=== PATIENT | male | born 1960 | race Caucasian/White ===

== ENCOUNTER 2018-11-08 09:35 | Inpatient (IN) ==
--- NOTE | 2018-10-26 09:36 | PAT Medication Instructions ---
Medication Instructions Date of Service October 26, 2018 Home Medications aspirin [Aspir-81] 81 mg PO QAM budesonide-formoterol [Symbicort] 2 puff INHALATION BID carvedilol 12.5 mg PO BID folic acid 1 mg PO QAM furosemide [Lasix] 20 mg PO Q2D mirtazapine 15 mg PO QAM pantoprazole 40 mg PO QAM sodium chloride 1,000 mg PO BID umeclidinium [Incruse Ellipta] 1 inh INHALATION QAM warfarin 5 mg PO QPM ASK your prescriber and surgeon aspirin [Aspir-81] 81 mg PO QAM -- if Dr. Degroot wants you to stop taking this, check with your prescriber. warfarin 5 mg PO QPM DO NOT take the morning of surgery folic acid 1 mg PO QAM furosemide [Lasix] 20 mg PO Q2D sodium chloride 1,000 mg PO BID Take morning of surgery With a small sip of water, OTHERWISE NOTHING TO EAT OR DRINK AFTER MIDNIGHT: budesonide-formoterol [Symbicort] 2 puff INHALATION BID carvedilol 12.5 mg PO BID mirtazapine 15 mg PO QAM pantoprazole 40 mg PO QAM umeclidinium [Incruse Ellipta] 1 inh INHALATION QAM Take evening before surgery budesonide-formoterol [Symbicort] 2 puff INHALATION BID carvedilol 12.5 mg PO BID furosemide [Lasix] 20 mg PO Q2D sodium chloride 1,000 mg PO BID Other Notes If you have any questions please call us at [phone] or [phone] or [phone] or [phone]
--- NOTE | 2018-10-26 09:52 | Anesthesiology Consultation ---
Date of Service October 26, 2018 Assessment & Plan (1) Encounter for pre-operative examination: S/P R upper lobectomy [facility] 2016 = Grade View III, MAC 3, ETT 35, "atraumatic placement of GUMARO with FOB confirmation." [employer] rep will need to be on-site AM DOS (ICD is on operative side). Dr. Vela spoke with Han Jeong of [employer], he will present AM DOS, Juan mayes. Cardiology Recommendations (Dr. Myers) 11/02/18 "He is considered moderate risk for cardiac morbidity/mortality from upcoming procedure. He will need to be monitored carefully in postop phase for CHF and hyponatremia, both of which have been issues in the past. The ICD needs to be managed based on the hospital protocols as well as the likelihood of use of electrocautery. One can deactivate the defib portion preop and then reactivate postop. Back to can also be placed on the device and the device do not sense anything and there is no concern for ICD discharge. Once Patricio is removed, the device will likely return to previous programmed parameters. Post [op] ECG, BMP will be needed to monitor cardiac status after surgery and exposure to anesthesia." CHECK PT/INR/PTT AM DOS Chart Review Chart Review: Acceptable Risk for Surgery and Patient seen in Pre Admission Testing Teaching & Discussion Instructed NPO after midnight before surgery, except medications with 15 cc of water. Medication instructions provided according to the PAT guidelines. History Surgery Operation Date: 11/08/18 07:30 Proposed Procedures p Robotic Right Video Assisted Thoracoscopy with Right Lower Lobe Wedge Resection, Frozen Section, Possible Competion Pneumonectomy - Kameron Degroot MD, FACS Height/Weight Height: 5 ft 10 in Weight: 55.2 kg Allergies Allergy/AdvReac Type Severity Reaction Status Date / Time No Known Allergies Allergy Verified 10/25/18 11:56 Medications Home Medications Medication Instructions Recorded Confirmed Last Taken aspirin [Aspir-81] 81 mg PO QAM 10/25/18 10/25/18 Unknown budesonide-formoterol [Symbicort] 2 puff INHALATION BID 10/25/18 10/25/18 Unknown carvedilol 12.5 mg PO BID 10/25/18 10/25/18 Unknown folic acid 1 mg PO QAM 10/25/18 10/25/18 Unknown furosemide [Lasix] 20 mg PO Q2D 10/25/18 10/25/18 Unknown mirtazapine 15 mg PO QAM 10/25/18 10/25/18 Unknown pantoprazole 40 mg PO QAM 10/25/18 10/25/18 Unknown sodium chloride 1,000 mg PO BID 10/25/18 10/25/18 Unknown umeclidinium [Incruse Ellipta] 1 inh INHALATION QAM 10/25/18 10/25/18 Unknown warfarin 5 mg PO QPM 10/25/18 10/25/18 Unknown Past Medical History Medical History Arthritis CKD (chronic kidney disease), stage III 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 Exercise / Class Metabolic Activity III < 4 Walking/Shop/Light housework "If I pace myself I can do a FOS without SOB or CP," Pt walks his dog around his neighborhood almost daily. Past Surgical History Surgical History History of cataract surgery R/L History of colonoscopy History of esophagogastroduodenoscopy (EGD) History of lobectomy of lung RIGHT VATS WITH UPPER LOBECTOMY with full lymphadenectomy-2016, [facility]. History of lung surgery EBUS History of orchiectomy 2/2 testicular cancer S/P ICD (internal cardiac defibrillator) procedure Past Anesthesia History No Hx of Anesthesia Complications and No Family Hx of Anesthesia Complications History of PONV No Hx of PONV and No Hx of Motion Sickness Social History Smoking Status: Former smoker tobacco type: cigarettes Do You Dip or Chew Tobacco: No Smoking End Date: QUIT 3 YRS AGO, H/O 1ppd Hx Alcohol Use: Yes Alcohol type: beer alcohol intake frequency: 0-2 drinks per day Alcohol Intake Frequency Comment: a few on weekends Hx Substance Use: No substance use type: does not use Review of Systems Pt denies any recent chest pain, shortness of breath, palpitations, cough above baseline chronic (Mild), fever or URI. Physical Exam Vital Signs BP: 133/66 P: 74bpm SPO2: 98% RA T: 98.1 F R: 12 Constitutional + cachectic ENMT Mouth: + dental restorations (two caps) and + small oral opening; no chipped teeth and no loose teeth Thyromental Distance: < 3.5 Finger Breadths (3) Mallampati Class: III Neck normal visual inspection and + facial hair (short trimmed mustache); neck extension not limited Respiratory normal respiratory effort Auscultation: + rhonchi (B/L inspiratory, diffuse) Cardiovascular Rate/Rhythm: regular rate and regular rhythm Heart Sounds: + murmur (II/ systolic mitral area) Vessels: no carotid bruit Extremities: no edema Psychiatric Orientation: alert and oriented x 3 Testing Laboratory Results 10/26/18 09:23 10/26/18 09:23 10/26/18 09:23 Blood Type A Negative Antibody Screen NEGATIVE *pt has chronic hyponatremia, reports baseline as upper 120's Electrocardiogram Date: 10/26/18 Atrial sensed ventricular paced rhythm at 73 bpm. Biventricular pacemaker detected. Compared with EKG of 04/29/2016, ventricular rate is decreased by 30 bpm. Echocardiogram Date: 08/14/18 EF: 40% Mild left ventricular hypertrophy. Global hypokinesis. Mild to moderate left ventricular systolic dysfunction. There is moderate aortic stenosis (FABRIZIO 1.4 cm, mean gradient 12 mmHg). Moderate aortic insufficiency. Severe tricuspid regurgitation. Mild to moderate mitral regurgitation, trace pulmonic insufficiency, and mild mitral stenosis. Mild pulmonary hypertension. Pacemaker ICD wires seen in the right-sided chambers. No change from previous study. Technically difficult apical windows. Other Testing Pacer/ICD check 08/07/18 [facility], implanted 04/10/13 Diagnosis: severe LV dysfunction Mode: DDDR Summary: AHR's < 1% = 6.3hrs. NSVT = short duration SVT 1:1, ~160bpm, ATR short duration of afib/flutter, longest ~ 6 seconds, no changes. This is a normal implantable cardioverter defibrillator remote follow-up. No significant device-related abnormalities were noted. [Pt] will continue remote f/u with ongoing active surveillance and quarterly remote interrogations.
[2018-10-26 12:35] LABS: Basophils # (auto) 0.06 K/uL (0-0.2); Basophils % (auto) 1.4 %; Eosinophils # (auto) 0.17 K/uL (0-0.5); Hematocrit (blood only) 34.9 % (42-52); Hemoglobin 11.8 g/dL (14.0-18.0); Lymphocytes # (auto) 0.93 K/uL (1.2-3.4); Lymphocytes % (auto) 21.8 %; Mean Corpuscular Hgb Conc 33.8 g/dL (32-36); Mean Corpuscular Volume 88.1 fL (80-100); Mean Platelet Volume 8.5 fL (7.4-10.4); Monocytes # (auto) 0.83 K/uL (0.11-0.59); Monocytes % (auto) 19.4 %; Neutrophils # (auto) 2.28 K/uL (1.4-6.5); Neutrophils % (auto) 53.4 %; Platelet Count 312 K/uL (130-400); RDW Standard Deviation 51.9 fL (36.4-46.3); Red Blood Count 3.96 M/uL (4.7-6.1); White Blood Count 4.27 K/uL (4.8-10.8)
[2018-10-26 13:02] LABS: BUN Creatinine Ratio 20.4 (10-20); Calcium 8.9 mg/dl (8.5-10.1); Creatinine Clr Calc Pharmacy 70.6 ml/min
[~2018-11-08 09:35] MED LIST: DEXAMETHASONE SOD INJ 4 MG/ML VIAL ONE; GLYCOPYRROLATE 0.2 MG/ML VIAL ONE; LIDOCAINE HCL 2% 2 ML VIAL/AMP(20MG/ML) INFIL ONE; LR 15ML/HR IV SCH; MIDAZOLAM HCL 1 MG/ML 2ML VIAL ONE; NEOSTIGMINE METHYLSULFATE 5 MG/5 ML SYR ONE; ONDANSETRON INJ 2 MG/ML 2 ML VIAL ONE; PROPOFOL IV EMULSION 10 MG/ML 20 ML VIAL IV ONE; fentaNYL citrate 100 MCG/2 ML VIAL ONE
--- NOTE | 2018-11-08 10:08 | History & Physical Bridge Note ---
Date of Service November 08, 2018 History & Physical Bridge Note I have examined the patient, reviewed the History & Physical and in the interval since the performance of the History & Physical I have noted the following changes of clinical significance: no changes noted
[2018-11-08] MEDS ORDERED: BUPIVACAINE 0.5 % 5 MG/1 ML MPF 30ML VIAL ONE (10:24)
[2018-11-08] MEDS ORDERED: SODIUM CHLORIDE 0.9% PF 50 ML VIAL ONE (10:25)
[2018-11-08] MEDS ORDERED: BUPIVACAINE LIPOSOME 1.3% 266 MG/20 ML VIAL ONE (10:25)
[2018-11-08] MEDS ORDERED: fentaNYL citrate 100 MCG/2 ML VIAL IV PRN (10:29)
[2018-11-08] MEDS ORDERED: ePHEDrine sulfate 50 MG/ML AMP IV PRN (10:29)
[2018-11-08] MEDS ORDERED: ONDANSETRON INJ 2 MG/ML 2 ML VIAL IV PRN ×2 (10:29→16:56)
[2018-11-08] MEDS ORDERED: HYDROmorphone INJ 2 MG/ML SYR/VIAL IV PRN (10:29)
[2018-11-08] MEDS ORDERED: ATROPINE SULFATE 0.1 MG/ML 10ML SYR IV PRN (10:29)
[2018-11-08] MEDS ORDERED: PROMETHAZINE HCL 6.25 MG in SODIUM CHLORIDE 0.9% 50 ML IV PRN (10:29)
[2018-11-08 10:46] LABS: INR 1.2 (0.9-1.1); Partial Thromboplastin Ratio 1.2; Partial Thromboplastin Time 31.9 Seconds (21.0-31.0); Prothrombin Time 11.9 Seconds (9.0-12.0)
[2018-11-08] MEDS ORDERED: fentaNYL citrate 100 MCG/2 ML VIAL ONE (12:23)
[2018-11-08] MEDS ORDERED: CEFAZOLIN 250 MG/ML 1 GM VIAL ONE (12:54)
--- NOTE | 2018-11-08 14:29 | Post Operative Brief Note ---
Immediate Post Op Note v1 Date of Surgery November 08, 2018 Pre & Post Diagnosis Operation Date: 11/08/18 11:50 Pre-Op Diagnosis: Right Lung Mass Post-Op Diagnosis: Adenocarcinoma right lower lobe Procedure Operation Date: 11/08/18 11:50 Actual Procedures p Robotic Right Video Assisted Thoracoscopy with Right Lower Lobe Wedge Re section, Frozen Section, Lysis of Adhesions, and Lymph node biopies (Right) - Kameron Degroot MD, FACS Surgeon Kameron Degroot MD, FACS Bott[employer] Selector Sandeep GREER Estimated Blood Loss 30 Findings Consistent with Post-Op Diagnosis Drains Chest Tube (24 Fr. Thal) and Negrete Catheter
[2018-11-08] MEDS ORDERED: METOCLOPRAMIDE HCL INJ 5 MG/ML 2 ML VIAL IV ONE (14:50)
[2018-11-08] MEDS ORDERED: METOCLOPRAMIDE HCL INJ 5 MG/ML 2 ML VIAL ONE (14:52)
--- NOTE | 2018-11-08 15:16 | XRay Report ---
XR chest 1V portable HISTORY: 58 years-old Male right wedge resection status post right-sided wedge resection COMPARISON: Chest radiograph 05/07/2016 TECHNIQUE: Portable AP view of the chest FINDINGS: A right-sided chest tube is noted, distal tip terminating adjacent to the medial right lung apex. Sub cutaneous emphysema about the right chest wall. Stable positioning of the right pectoral pacer/AICD. Small right pleural effusion with postoperative changes of the right lung. Suspected right pleural ef fusion difficult to quantify. Degenerative changes of the shoulders and spine. Cardiomediastinal and hilar silhouettes are unchanged. Left lung is clear. IMPRESSION: Postoperative changes of the right lung with right-sided chest tube terminating adjacent to the right lung apex medially. Probable right pneumothorax, difficult to quantify. The above report was generated using voice recognition software. It may contain grammatical, syntax o r spelling errors. Electronically signed by: Elliott Hewitt M.D. 11/08/2018 3:14 PM
--- NOTE | 2018-11-08 15:41 | Anesthesiology Progress Note ---
Date of Service November 08, 2018 Anesthesia Post Procedure Vital Signs Vital Signs: Temp Pulse Pulse Resp BP Pulse Ox 11/08/18 14:48 36.0 C L 77 12 137/74 99 11/08/18 10:11 36.9 C 87 18 165/81 H 97 Transfer of Care Handoff Completed per policy Notes Mental Status: alert / awake / arousable, participated in evaluation and see notes below Patient Amnestic to Procedure: Yes Nausea / Vomiting: adequately controlled Pain: adequately controlled Airway Patency, RR, SpO2: stable & adequate BP & HR: stable & adequate Hydration State: stable & adequate Anesthetic Complications: no major complications apparent and Pt Satisfied with anesthetic care
[2018-11-08] MEDS ORDERED: MoRPHine SULFATE 2 MG/ML CARP IV PRN (16:56)
[2018-11-08] MEDS: D5W AND 1/2NSS 1,000 ML IV SCH (17:47)
[2018-11-08] MEDS: ACETAMINOPHEN 1,000 MG/100 ML VIAL IV SCH ×2 (17:48→23:58)
[2018-11-08] MEDS: OXYCODONE HCL IR 5 MG TAB (IMMEDIATE RELEASE) PO PRN (20:33)
[2018-11-08] MEDS: CARVEDILOL 12.5 MG TAB PO SCH (20:38)
[2018-11-08] MEDS: BUDESONIDE/FORMOTEROL FUMARATE 160/4.5 60 PUFFS/INHALER INH SCH (20:38)
[2018-11-08] MEDS: DOCUSATE SODIUM 100 MG CAP PO SCH (20:38)
[2018-11-08] MEDS: SODIUM CHLORIDE 1 GM TABLET PO SCH (20:38)
[2018-11-08] MEDS: METOCLOPRAMIDE HCL INJ 5 MG/ML 2 ML VIAL IV SCH (22:04)
--- NOTE | 2018-11-08 22:50 | Operative Report ---
DATE OF OPERATION: 11/08/2018 PREOPERATIVE DIAGNOSES: 1. Hypermetabolic mass, right lower lobe. 2. Status post thoracoscopic right upper lobectomy 2 years ago for an adenocarcinoma. PROCEDURE PERFORMED: 1. Robot-assisted thoracoscopic extensive lysis of adhesions. 2. Wide wedge resection of lower lobe mass. 3. Lymph node biopsy. SURGEON: Kameron Degroot MD. BINGO CASHIER: ZEOY Menchaca. (Mr. Ortega was present for the entire case, he was at the patient's bedside while I was at the console and closed the skin incisions at the end). INDICATIONS FOR PROCEDURE AND FINDINGS: Jed Maxwell is a 58-year-old male that I know well. Two years ago, performed a thoracoscopic right lower lobectomy for nonsmall cell lung carcinoma and he did well. He has a stage 1a. He had been followed by his lung puller in [place], Dr. Ward, performed a recent CT scan and followed it up with a PET scan which showed a single hypermetabolic focus in the right lower lobe. Mr. Maxwell has had testicular carcinoma with chemotherapy and radiation, history of cigarette smoking and despite his young age of 58 is rather frail really. He did tolerate a lobectomy well 2 years ago and his lung function showed that he would tolerate a pneumonectomy if necessary. However, I have concerns about his heart. He has an ICD in place. He had ejection fraction about 50%, but had problems of cardiomyopathy in the past. I did a VQ scan and the majority of his ventilation and perfusion are still on the right side despite his lobectomy. We discussed this in great detail in the office and before the surgery. I am hesitant to offer this patient a pneumonectomy. I felt a wedge resection for diagnosis would be helpful and we could also treat him locally. I told the patient, we would offer him a segmentectomy if the frozen section showed a carcinoma as I suspected. It should also be noted that the patient had a lymph node along his bronchus intermedius. It was biopsied with endobronchial ultrasound and did not seem to indicate metastatic disease. On 11/08/2018, the patient brought to the operating room and underwent uncomplicated robot-assisted thoracoscopic takedown of marked adhesions. I was able to separate his rather small middle lobe from his lower lobe; however, I was a bit disappointed. It appeared on the CT scan and the PET scan that we would be able to get away with an apical segmentectomy. I did wedge this mass out, but this was right on top of the continuation of pulmonary artery, so a segmentectomy would not be possible. I did do a generous wedge resection. We biopsied a level 4 lymph node and some other lymph nodes, although there were very little in the way of lymphadenopathy. I dissected out the bronchus intermedius; however, I did not come upon any lymph nodes. He tolerated it well with negligible blood loss and had a tiny air leak. At the conclusion of the case, was extubated in the room. DESCRIPTION OF PROCEDURE: The patient was brought to operating room and laid in supine position. General anesthesia induced and endotracheal intubation was performed with a double lumen tube. The patient was turned in left lateral decubitus position. Right chest prepped and draped in usual sterile fashion and prophylactic antibiotics were given. After appropriate timeout had been called, a 5 mm port was placed at about the seventh interspace posteriorly and the posterior axillary line. There were no adhesions in this particular area, but he had marked adhesions at the apex and medially. I then placed an 8.5 mm camera port just anterior to the mid axillary line, a 5 mm port posteriorly and then another 8 mm port one interspace above medially. We placed 15 mm port as the assistance port anteriorly just above the diaphragm. The mass was not quite evident when we first went in. I spent a great deal of time taking down adhesions. I took down adhesions along the posterior pleura and freed up the mainstem bronchus and dissected out the level 7 area, although I did not see much in the way of lymph nodes. I divided the azygos vein with an Endo-JACKIE stapler and sent off a level 4 node; however, again these nodes were not enlarged, although we did have some adhesions where we had our prior bronchial stump. I spent a good deal of time taking down adhesions of the upper lobe to the apical area. We were able to get into a plane and finally with the robot, with meticulous dissection, this quite nicely. Medially the middle lobe was really stuck to the pericardial fat and I dissected this out quite meticulously and I was able to get this off well until we completely freed up the entire lung. I identified the superior and inferior pulmonary veins from posteriorly as I was dissecting out the bronchus intermedius. I was able to separate the fissure quite nicely anteriorly. It was then that I encountered the mass and I was surprised to see how medial it was. On the CT scan, it appeared to be much higher up in the superior segment; however, it should be noted that after right upper lobectomy, the anatomy was distorted. It turns out this mass was right over the continuation of pulmonary artery into the lower lobe. He was not a candidate for segmentectomy. I had discussed this with the patient and Dr. Ward. I am concerned about offering this patient a pneumonectomy. I do not think he would do well. I told the patient and his preoperatively that I did not think we would end up offering that even if the situation presented itself. I wedged this mass out using Endo-JACKIE stapler after carefully freeing up the adhesions in the fissure. I got a wide margin on this rather small mass. Frozen section showed this to be an adenocarcinoma which was not surprising. There was a small air leak where we had the fissure and I closed this with a 3-0 V-Loc Vicryl suture. There was also an area in the middle lobe medially which was leaking air where we had it from its adhesions to the precordial fat. I wedged this out and sent it off. There was no mass here. There was air leak further down in the lateral basilar segment of the lower lobe which was grasped and I fired across this and reinforced Endo-JACKIE staplers and controlled the air leak. A 266 mL of Exparel mixed with 30 mL of 0.5% bupivacaine and 250 mL of normal saline and injected into each of the 5 port sites. I then injected it from the 2nd through 11th rib intrathoracically for intercostal block. It should be noted that all lymph nodes and all mass was removed in an Endobag. With it being a very small air leak, I elected to stop at this point. A 24-Turkmen chest tube was placed through the camera port directed towards the apex and held in place with heavy silk suture. A 2-0 Vicryl V-Loc suture was used to close the muscle layers of the 8 mm port anteriorly and posteriorly and the restaurant assistant manager's port. A 4-0 Monocryl was used in running subcuticular fashion to approximate the wound edges. The patient was awakened from anesthesia quite nicely and transported to the Postanesthesia Care Unit in stable condition. I attest to the content of the Intraoperative Record and any orders documented therein. Any exception s are noted below.
[2018-11-09] MEDS: D5W AND 1/2NSS 1,000 ML IV SCH (03:49)
[2018-11-09] MEDS: METOCLOPRAMIDE HCL INJ 5 MG/ML 2 ML VIAL IV SCH (05:27)
[2018-11-09] MEDS: OXYCODONE HCL IR 5 MG TAB (IMMEDIATE RELEASE) PO PRN (05:27)
--- NOTE | 2018-11-09 07:05 | XRay Report ---
XR chest 1V portable HISTORY: 58 years-old Male right wedge resection status post right-sided wedge resection COMPARISON: Chest radiograph 11/08/2018 TECHNIQUE: Portable AP view of the chest FINDINGS: The cardiomediastinal and hilar silhouettes are unchanged. Calcification of the thoracic aortic arch. Right-sided pacer/AICD is unchanged. Postoperative changes of the right lung with persistent right m idlung and right lung base opacities. Stable positioning of the right-sided chest tube. Persistent pham bcutaneous emphysema about the right chest wall. Apical right-sided pneumothorax, pleural separation of 1.8 cm. In retrospect, this appears to be decreased in size from comparison. Degenerative changes of the shoulders and spine. IMPRESSION: 1. Postoperative changes of the right lung with stable positioning of the right-sided chest tube. 2. Small right apical pneumothorax, decreased in size from comparison. The above report was generated using voice recognition software. It may contain grammatical, syntax o r spelling errors. Electronically signed by: Elliott Hewitt M.D. 11/09/2018 7:04 AM
[2018-11-09] MEDS ORDERED: TRAMADOL HCL 50 MG TABLET PO PRN (07:43)
[2018-11-09] MEDS ORDERED: OXYCODONE HCL IR 5 MG TAB (IMMEDIATE RELEASE) PO PRN (07:53)
[2018-11-09] MEDS: ACETAMINOPHEN 325 MG TAB PO SCH ×4 (08:51→23:45)
[2018-11-09] MEDS: ASPIRIN 81 MG ECTAB PO SCH (08:52)
[2018-11-09] MEDS: FOLIC ACID 1 MG TAB PO SCH (08:52)
[2018-11-09] MEDS: CARVEDILOL 12.5 MG TAB PO SCH ×2 (08:52→21:08)
[2018-11-09] MEDS: DOCUSATE SODIUM 100 MG CAP PO SCH ×2 (08:52→21:09)
[2018-11-09] MEDS: ENOXAPARIN INJ 40 MG/0.4 ML SYR SQ SCH (08:52)
[2018-11-09] MEDS: BUDESONIDE/FORMOTEROL FUMARATE 160/4.5 60 PUFFS/INHALER INH SCH ×2 (08:53→21:09)
[2018-11-09] MEDS: SODIUM CHLORIDE 1 GM TABLET PO SCH ×2 (08:53→21:09)
[2018-11-09] MEDS: PANTOprazole 40 MG TAB PO SCH (08:53)
[2018-11-09] MEDS: MIRTAZAPINE TAB 15 MG TAB PO SCH (08:53)
--- NOTE | 2018-11-09 12:59 | Progress Note ---
DATE: 11/09/2018 Mr. Maxwell was seen today on 11/09/2018, one day after a thoracoscopic extensive lysis of adhesions and a wedge resection with lymph node biopsy on the right. This turned out to be an adenocarcinoma. The patient did quite well with this, although he has a small air leak now. He is tolerating a diet. He is ambulating in the hallway without difficulty. He is still on some oxygen, but he is being weaned off. We will hopefully get the patient out of the hospital in the next couple of days. I was quite pleased with how well he tolerated the procedure.
[2018-11-10] MEDS: ACETAMINOPHEN 325 MG TAB PO SCH ×4 (06:26→23:53)
--- NOTE | 2018-11-10 06:54 | XRay Report ---
XR chest 1V portable CLINICAL HISTORY: right lung wedge biopsy post biopsy COMPARISON STUDY: 11/09/2018 FINDINGS: Trace residual right pneumothorax improved from the prior study. Maximum pleural separation currently is 4 mm. Mild chronic interstitial changes throughout both hemithoraces. Improved right basilar atelectasis. IMPRESSION: 1. Improved exam with aeration of the right lung base improved. 2. Minimal residual right apical pneumothorax also improved. The above report was generated using voice recognition software. It may contain grammatical, syntax or spelling errors. Electronically signed by: Oz Howard M.D. 11/10/2018 6:53 AM
--- NOTE | 2018-11-10 07:29 | Anesthesiology Progress Note ---
Date of Service November 10, 2018 Anesthesia Post Procedure Vital Signs Vital Signs: Temp Pulse Resp BP Pulse Ox Pulse Ox 11/10/18 07:08 36.7 C 88 16 131/71 92 11/10/18 04:00 98 11/10/18 03:33 36.6 C 84 17 128/68 92 11/10/18 00:00 98 11/09/18 23:41 36.6 C 81 17 121/72 92 11/09/18 23:39 36.6 C 81 17 121/72 92 11/09/18 21:07 90 113/68 11/09/18 20:06 36.6 C 87 17 130/73 95 11/09/18 16:12 36.4 C L 81 17 123/70 96 11/09/18 13:54 36.3 C L 79 19 94/62 L 96 11/09/18 08:04 36.5 C 79 16 125/71 96 96 Pain Intensity Right Chest: Pain Intensity: 3 Notes Mental Status: alert / awake / arousable and participated in evaluation Nausea / Vomiting: adequately controlled Pain: adequately controlled Airway Patency, RR, SpO2: stable & adequate BP & HR: stable & adequate Hydration State: stable & adequate
[2018-11-10] MEDS: ASPIRIN 81 MG ECTAB PO SCH (08:31)
[2018-11-10] MEDS: CARVEDILOL 12.5 MG TAB PO SCH ×2 (08:31→20:11)
[2018-11-10] MEDS: FOLIC ACID 1 MG TAB PO SCH (08:31)
[2018-11-10] MEDS: PANTOprazole 40 MG TAB PO SCH (08:31)
[2018-11-10] MEDS: BUDESONIDE/FORMOTEROL FUMARATE 160/4.5 60 PUFFS/INHALER INH SCH ×2 (08:31→20:11)
[2018-11-10] MEDS: DOCUSATE SODIUM 100 MG CAP PO SCH ×2 (08:31→20:11)
[2018-11-10] MEDS: SODIUM CHLORIDE 1 GM TABLET PO SCH ×2 (08:31→20:11)
[2018-11-10] MEDS: MIRTAZAPINE TAB 15 MG TAB PO SCH (08:32)
[2018-11-10] MEDS: ENOXAPARIN INJ 40 MG/0.4 ML SYR SQ SCH (08:32)
--- NOTE | 2018-11-10 18:06 | Progress Note ---
DATE: 11/10/2018 The patient was seen today on 11/10/2018. He is now 2 days status post a wedge resection, lysis of adhesions and a lymph node biopsy. He looks great. He has no air leak. I am quite pleased with the appearance of his chest x-ray. He is eating well. He sounds good on exam. He has now been weaned to room air. I am going to probably send him home tomorrow. I discussed this with the patient and his . I am quite pleased with him.
[2018-11-11] MEDS: ACETAMINOPHEN 325 MG TAB PO SCH ×3 (06:12→17:39)
[2018-11-11] MEDS: DOCUSATE SODIUM 100 MG CAP PO SCH ×2 (08:12→21:18)
[2018-11-11] MEDS: CARVEDILOL 12.5 MG TAB PO SCH ×2 (08:12→21:18)
[2018-11-11] MEDS: BUDESONIDE/FORMOTEROL FUMARATE 160/4.5 60 PUFFS/INHALER INH SCH ×2 (08:12→21:17)
[2018-11-11] MEDS: ENOXAPARIN INJ 40 MG/0.4 ML SYR SQ SCH (08:12)
[2018-11-11] MEDS: PANTOprazole 40 MG TAB PO SCH (08:12)
[2018-11-11] MEDS: FOLIC ACID 1 MG TAB PO SCH (08:12)
[2018-11-11] MEDS: MIRTAZAPINE TAB 15 MG TAB PO SCH (08:12)
[2018-11-11] MEDS: ASPIRIN 81 MG ECTAB PO SCH (08:12)
[2018-11-11] MEDS: SODIUM CHLORIDE 1 GM TABLET PO SCH ×2 (08:12→21:18)
--- NOTE | 2018-11-11 09:37 | Progress Note ---
DATE: 11/11/2018 The patient looks great. He sounds good. He is ambulating in the hallway. He is on room air with 95% saturations. His chest tube; however, shows a very small leak today, which I did not see yesterday. I was going to discharge him today, but I explained to him that I have to hold off due to this leak, which is intermittent and small, still I think too big for me to pull the tube. We will see how things look in the morning. I have also ordered some MiraLax should he desire this for his bowels. TANISHA
[2018-11-11] MEDS: POLYETHYLENE (MIRALAX) 17 GM PACK PO PRN (13:58)
[2018-11-12] MEDS: ACETAMINOPHEN 325 MG TAB PO SCH ×2 (00:24→06:15)
--- NOTE | 2018-11-12 07:14 | XRay Report ---
XR chest 1V portable CLINICAL HISTORY: s/p lung resection COMPARISON STUDY: 11/10/2018 FINDINGS: The cardiac and mediastinal contours remain stable. There is a right-sided dual-chamber jaymie tral venous pacemaker present. Postsurgical changes are present on the right. There is a right-sided chest tube projected over the apex. No pneumothorax is visualized. Minimal right basilar airspace opa cities persist. Left lung is clear.[ There is increasing right-sided subcutaneous emphysema. IMPRESSION: Postsurgical changes in the right. Increasing right-sided subcutaneous emphysema. No pneu mothorax is visualized. Electronically signed by: Alonzo De La Garza M.D. 11/12/2018 7:12 AM
[2018-11-12] MEDS: POLYETHYLENE (MIRALAX) 17 GM PACK PO PRN (08:24)
[2018-11-12] MEDS: PANTOprazole 40 MG TAB PO SCH (08:25)
[2018-11-12] MEDS: MIRTAZAPINE TAB 15 MG TAB PO SCH (08:25)
[2018-11-12] MEDS: ASPIRIN 81 MG ECTAB PO SCH (08:25)
[2018-11-12] MEDS: FOLIC ACID 1 MG TAB PO SCH (08:25)
[2018-11-12] MEDS: DOCUSATE SODIUM 100 MG CAP PO SCH (08:26)
[2018-11-12] MEDS: SODIUM CHLORIDE 1 GM TABLET PO SCH (08:26)
[2018-11-12] MEDS: ENOXAPARIN INJ 40 MG/0.4 ML SYR SQ SCH (08:26)
[2018-11-12] MEDS: CARVEDILOL 12.5 MG TAB PO SCH (08:26)
[2018-11-12] MEDS: BUDESONIDE/FORMOTEROL FUMARATE 160/4.5 60 PUFFS/INHALER INH SCH (08:27)
--- NOTE | 2018-11-12 10:13 | XRay Report ---
XR chest 1V portable CLINICAL HISTORY: CHEST TUBE REMOVAL COMPARISON STUDY: 11/12/2018 FINDINGS: The cardiac and mediastinal contours remain stable. There is a right subclavian pacer/defib rillator. The right-sided chest tube has been removed. There is a trace right apical pneumothorax. Th ere is moderate subcutaneous emphysema in the right. Minimal right basilar airspace opacities persist [ IMPRESSION: Trace right apical pneumothorax status post right-sided chest tube removal Electronically signed by: Alonzo De La Garza M.D. 11/12/2018 10:12 AM
--- NOTE | 2018-11-12 22:17 | Discharge Summary ---
DATE OF ADMISSION: 11/08/2018 DATE OF DISCHARGE: 11/12/2018 DISCHARGE DIAGNOSES: 1. Adenocarcinoma, right lower lobe. 2. Status post right upper lobectomy for adenocarcinoma 2-1/2 years ago. HOSPITAL COURSE: This is a 58-year-old male who has a history of testicular carcinoma treated with chemotherapy and radiation in distant past, who presented with a cancer in his right upper lobe and I did a thoracoscopic right upper lobectomy in April 2016. He did well with this and it was an early stage cancer. He had been followed by his draw hand, Dr. Julius Ward from [facility]. Dr. Ward had ordered a CT and then a PET scan which showed hypermetabolic mass which is isolated to his right lower lobe. We evaluated him. I did not think he was a candidate for a completion pneumonectomy. He did not have a diagnosis, so I took the patient to the operating room and did a wide wedge resection of this mass, which we were easily able to localize. Unfortunately, there was an area where we could not offer segmentectomy as it was just distal but over the continuation of pulmonary artery to the lower lobe. We did get a generous wedge however. We also did dissect out some lymph nodes. Frozen section showed this to be an adenocarcinoma. The patient did well except he had a small air leak, this took couple days to resolve. Finally this completely resolved on 11/12/2018. I removed his chest tube. His x-ray looked quite good afterwards. His incisions were clean. Pain control was easily obtained. I did send him home with some tramadol and gave him discharge instructions. We will see him back in a week to go over the final pathology. I was quite pleased with what I did.
== END 2018-11-12 11:10 | disposition home or self-care (01) | DRG 164 ==
LOC: ASU 09:35 → 3W 14:37